=== PATIENT | female | born 1995 | race Hispanic/Latino ===

== ENCOUNTER 2023-01-16 20:49 | Inpatient (IN) | payer MEDICAID, OTHER ==
[2023-01-16 21:10] VITALS: BMI 31.8
[2023-01-16 21:45] LABS: Fetal Membranes Rupture RUPTURE DETECTED (No Rupture)
[2023-01-16] MEDS ORDERED: fentaNYL 50 mcg/mL 1 mL Vial SLOW IVP PRN (22:41)
[2023-01-16] MEDS ORDERED: Oxytocin 30 units/NS 500 ML 500 ML IVPB SCH (22:45)
[2023-01-16] MEDS ORDERED: HYDROcodone/Acetaminophen 5/325 mg Tablet PO PRN ×2 (22:45)
[2023-01-16] MEDS ORDERED: Ibuprofen 800 MG TAB PO PRN (22:45)
[2023-01-16] MEDS ORDERED: Methylergonovine 0.2 MG/ML VIAL IM PRN (22:45)
[2023-01-16] MEDS ORDERED: Misoprostol 200 MCG TAB RC PRN (22:45)
[2023-01-16] MEDS ORDERED: Diphenoxylate HCl/Atropine Tablet PO PRN ×2 (22:45)
[2023-01-16] MEDS ORDERED: Carboprost 250 MCG/ML AMP IM PRN (22:45)
[2023-01-16] MEDS ORDERED: hydrALAZINE 20 MG/ML VIAL SLOW IVP PRN (22:45)
[2023-01-16] MEDS ORDERED: Ondansetron PF 4 MG/2 ML Vial IVP PRN (22:45)
[2023-01-16] MEDS ORDERED: Lidocaine 1% (PF) 30 ML VIAL SC PRN (22:45)
[2023-01-16] MEDS ORDERED: Lactated Ringer's 1,000 ML IV SCH (22:45)
[2023-01-16] MEDS ORDERED: Acetaminophen 500 MG TAB PO PRN (22:45)
[2023-01-16] MEDS ORDERED: Oxytocin 30 units/NS 500 ML 500 ML IV SCH (22:45)
[2023-01-16] MEDS ORDERED: Promethazine HCl 25 MG/ML VIAL IM PRN (22:45)
[2023-01-16] MEDS: Lactated Ringer's 1,000 ML IV SCH (23:20)
[2023-01-16] MEDS: Ampicillin 2 GM in Sodium Chloride 0.9% 100 ML IVPB SCH (23:25)
[2023-01-16 23:31] LABS: Hematocrit 35.1 % (34.9-44.5); Hemoglobin 11.8 g/dL (12.0-15.5); Mean Corpuscular HGB CONC 33.6 g/dL (32.0-36.0); Mean Corpuscular Hemoglobin 27.4 pg (27.0-33.0); Mean Corpuscular Volume 81.4 fl (81.6-98.3); Mean Platelet Volume 11.5 fl (7.4-10.4); Platelet Count 182 10x3/uL (150-450); RBC Distribution Width 14.3 % (11.5-14.5); Red Blood Cell (RBC) Count 4.31 10x6/uL (3.90-5.03); White Blood Cell (WBC) Count 9.3 10x3/uL (3.5-10.5)
[2023-01-16 23:59] LABS: Syphilis Antibody Nonreactive (Nonreactive); Syphilis Antibody Index 0.04 S/CO (<1.00 Non-Reactive)
[2023-01-17] LABS: HBSAg Index 0.17 S/CO (0-0.99); Hep B Surf Ag - L&D Non-Reactive S/CO (NonReactive)
[2023-01-17] MEDS: Lactated Ringer's 1,000 ML IV SCH (04:20)
[2023-01-17] MEDS: Ampicillin 2 GM in Sodium Chloride 0.9% 100 ML IVPB SCH (07:02)
[2023-01-17] MEDS ORDERED: Bupivacaine 0.25% HCL 30 ML VIAL ONE (08:00)
[2023-01-17] MEDS ORDERED: fentaNYL/Ropivacaine Epidural 100 ML ONE (12:43)
[2023-01-17] MEDS ORDERED: Moisturizing Cream (Eucerin) 113 GM JAR TOP PRN (16:16)
[2023-01-17] MEDS ORDERED: Naloxone HCl 0.4 mg/ml Vial IVP PRN ×2 (16:16)
[2023-01-17] MEDS ORDERED: diphenhydrAMINE 50 MG/ML VIAL IVP PRN (16:16)
[2023-01-17] MEDS ORDERED: ePHEDrine Sulfate 50 MG/10 ML VIAL SLOW IVP PRN (16:16)
[2023-01-17] MEDS ORDERED: Lactated Ringer's 500 ML IV PRN (16:16)
[2023-01-17] MEDS ORDERED: Acetaminophen 325 MG TAB PO PRN (16:16)
[2023-01-17] MEDS ORDERED: Promethazine HCl 25 MG/ML VIAL IM PRN ×2 (16:16→19:14)
[2023-01-17] MEDS ORDERED: Ondansetron PF 4 MG/2 ML Vial IVP PRN ×2 (16:16→19:14)
[2023-01-17] MEDS ORDERED: fentaNYL 2 mcg/Ropivacaine 0.2% Epidural 100 ML CADD EPIDURAL SCH (16:30)
[2023-01-17] MEDS ORDERED: Communication Order-Pharmacy FS SCH (16:30)
[2023-01-17] MEDS ORDERED: Lanolin Ointment 7 GM TUBE TOP PRN (19:14)
[2023-01-17] MEDS ORDERED: hydrALAZINE 20 MG/ML VIAL SLOW IVP PRN (19:14)
[2023-01-17] MEDS ORDERED: diphenhydrAMINE 25 MG CAP PO PRN (19:14)
[2023-01-17] MEDS ORDERED: Bisacodyl 10 MG SUPP PR PRN (19:14)
[2023-01-17] MEDS ORDERED: Benzocaine-Menthol 82.5 ML CAN TOP PRN (19:14)
[2023-01-17] MEDS ORDERED: Milk Of Magnesia 30 ML UDCUP PO PRN (19:14)
[2023-01-17] MEDS ORDERED: Boostrix 0.5 ML (Tdap) VIAL (>/=7 yrs of age) IM ONE (19:14)
[2023-01-17] MEDS: HYDROcodone/Acetaminophen 5/325 mg Tablet PO PRN (20:54)
[2023-01-17] MEDS: Docusate 100 MG CAP PO SCH (20:55)
[2023-01-17] MEDS: Ibuprofen 800 MG TAB PO SCH (22:06)
[2023-01-18] MEDS: HYDROcodone/Acetaminophen 5/325 mg Tablet PO PRN ×2 (02:10→06:02)
[2023-01-18] MEDS: Ibuprofen 800 MG TAB PO SCH ×2 (06:01→14:13)
[2023-01-18] MEDS: Ampicillin 2 GM in Sodium Chloride 0.9% 100 ML IVPB SCH (07:38)
[2023-01-18] MEDS: Lactated Ringer's 1,000 ML IV SCH (07:39)
[2023-01-18] MEDS ORDERED: Ferrous Sulfate 325 MG TAB PO SCH (08:00)
[2023-01-18] MEDS: Docusate 100 MG CAP PO SCH (08:16)
[2023-01-18] MEDS ORDERED: Prenatal Vitamin 1 TAB PO SCH (09:00)
[2023-01-18 11:34] VITALS: BP 99/57; TEMP 98.5
== END 2023-01-18 18:45 | disposition home or self-care (01) | DRG 807 ==
LOC: CSHLD/OP 20:49 → CSHLD 01-17 01:26 → CSHPP 01-17 18:10
PROVIDERS: ADMIT Family Medicine; ATTEND Family Medicine
PROC: 10E0XZZ Delivery of Products of Conception, External Approach (ICD-10-PCS; principal; 2023-01-17)
PROC: 0HQ9XZZ Repair Perineum Skin, External Approach (ICD-10-PCS; 2023-01-17)
DX: O42.02 Full-term premature rupture of membranes, onset of labor within 24 hours of rupture (principal); Z37.0 Single live birth; Z3A.40 40 weeks gestation of pregnancy; O48.0 Post-term pregnancy; O70.0 First degree perineal laceration during delivery
CPT/HCPCS: 36415; 84112; 85027; 86780; 86850; 86900; 86901; 87340; 88307; 99285; J0290; J2210; J2590; J3490; J7120; S0020

== ENCOUNTER 2024-05-02 18:09 | Emergency (ER) | payer MEDICAID, SELFPAY ==
[2024-05-02] MEDS ORDERED: Acetaminophen 500 MG TAB ONE (19:12)
[2024-05-02] MEDS ORDERED: Ketorolac Tromethamine 30 MG (1 mL) VIAL ONE (19:12)
[2024-05-02 20:04] LABS: #Basophils 0.03 10x3/uL (0.0-0.2); #Eosinophils 0.19 10x3/uL (0.0-0.5); #Monocytes 0.37 10x3/uL (0.0-1.1); #Neutrophils 6.95 10x3/uL (1.5-8.4); %Basophils 0.3 % (0.0-2.0); %Eosinophils 2.1 % (0.0-6.0); %Lymphocytes 16.2 % (18.0-47.0); %Monocytes 4.1 % (0.0-10.0); %Neutrophils 77.1 % (40.0-75.0); Hematocrit 40.6 % (34.9-44.5); Hemoglobin 13.9 g/dL (12.0-15.5); Mean Corpuscular HGB CONC 34.2 g/dL (32.0-36.0); Mean Corpuscular Hemoglobin 29.4 pg (27.0-33.0); Mean Corpuscular Volume 85.8 fL (81.6-98.3); Mean Platelet Volume 11.1 fL (7.4-10.4); Platelet Count 241 10x3/uL (150-450); RBC Distribution Width 11.9 % (11.5-14.5); Red Blood Cell (RBC) Count 4.73 10x6/uL (3.90-5.03); White Blood Cell (WBC) Count 9.02 10x3/uL (3.5-10.5)
[2024-05-02 20:22] LABS: ALT (SGPT) 25 U/L (Less than 34); AST (SGOT) 17 U/L (11-34); Albumin 4.3 g/dL (3.1-4.5); Alkaline Phosphatase 62 U/L (40-110); Anion Gap 15 mmol/L (10-20); BUN (Urea Nitrogen) 7 mg/dL (7.0-18.7); Bilirubin, Total 1.5 mg/dL (0.3-1.2); Calc. Creatinine Clearance 0 mL/min (70-130); Calcium 9.2 mg/dL (7.8-10.44); Carbon Dioxide 20 mmol/L (22-29); Chloride 106 mmol/L (98-107); Estimated GFR 124; Globulin 3.8 g/dL (2.4-3.5); Glucose 101 mg/dL (70-105); Potassium 3.6 mmol/L (3.5-5.1); Protein, Total 8.1 g/dL (6.0-8.3); Sodium 137 mmol/L (136-145)
== END 2024-05-02 20:58 | disposition home or self-care (01) ==
LOC: CSHERS 18:09
DX: R51.9 Headache, unspecified (principal)
CPT/HCPCS: 80053; 85025; 87428; 96374; J1885